=== PATIENT | male | born 1955 | race Caucasian/White ===

== ENCOUNTER 2019-08-04 05:09 | Day surgery (SDC) | payer MEDICARE, SELFPAY ==
[2019-07-27 15:14] VITALS: BMI 36.3
[2019-08-03 11:27] VITALS: BMI 36.5
[2019-08-04] VITALS (10 sets, daily range): BP systolic 143–179; BP diastolic 73–96; PULSE 61–78; RESP 11–19; TEMP 36.7–36.8; O2SAT 98–100
[2019-08-04 07:33] LABS: Basophils Percent Auto 0.5 % (0.2-1.2); Eosinophils Absolute Auto 0.2 K/mm3 (0-0.3); Eosinophils Percent Auto 2.7 % (0-4.4); Hemoglobin 15.3 g/dL (14.0-18.0); Immature Granulocyte Absolute 0.05 K/mm3 (0.00-0.031); Immature Granulocyte Percent A 0.6 % (0-0.5); Lymphocytes Absolute Auto 2.02 K/mm3 (0.9-3.2); Lymphocytes Percent Auto 26.2 % (18.3-44.2); Mean Corpuscular HGB Conc 32.6 g/dl (32-36); Mean Corpuscular Hemoglobin 29.3 pg (26-34); Mean Corpuscular Volume 89.9 fl (80-100); Mean Platelet Volume 8.8 fl (7.4-10.4); Monocytes Absolute Auto 0.5 K/mm3 (0.1-0.6); Monocytes Percent Auto 6.2 % (2.6-8.5); Neutrophils Absolute Auto 4.9 K/mm3 (1.3-6.7); Neutrophils Percent Auto 63.8 % (45.5-73.1); Platelet Count Result 189 k/mm3 (150-375); Red Blood Count 5.23 M/mm3 (4.6-6.20); Red Cell Distribution Width 13.5 % (11.5-14.5); White Blood Count 7.7 K/mm3 (4.5-10.0)
[2019-08-04 07:46] LABS: Blood Urea Nitrogen 28 mg/dL (9-20); Calcium 9.4 mg/dL (8.4-10.2); Carbon Dioxide 25 mmol/L (22-30); Chloride 105 mmol/L (98-107); Estimated CRCL calculation 71 ml/min; Estimated Glomerular Filt Rate > 60; Glucose 120 mg/dL (75-110); Potassium 4.3 mmol/L (3.4-5.0); Sodium 140 mmol/L (137-145)
--- NOTE | 2019-08-04 08:32 | WPDHPUPDATE1 ---
History and Physical Update Update Date/Time: 08/04/19 08:32 History and Physical has been reviewed, including an updated exam of the patient. This is a patient of Dr. Kilgore is has an abnormal EKG and abnormal stress test being evaluated preoperatively for hip surgery. He has history of hypertension. No chest pain or shortness of breath. Is feeling well and wants to have his heart catheterization done today rather than reschedule, since it was originally scheduled with Dr. Mendoza. There are NO changes in the patient's condition. Risks, benefits, and alternatives have been discussed and questions answered. Patient agrees to proceed with procedure. Reviewed possible risks and complications with patient including breathing problems, bleeding problems, blood vessel problems, unanticipated surgery, allergic reactions, kidney problems, CVA, [place], and among others. Discussed possibility of stenting and possible need for DAPT. Discussed the possibility that if DAPT is interrupted stent thrombosis can occur resulting in heart attack and . Stenting would delay his hip surgery. Patient understands risks and desires to proceed.
--- NOTE | 2019-08-04 08:37 | WPDMODSED ---
Moderate Sedation Note-Pt Data Patient Data Allergies Allergy/AdvReac Type Severity Reaction Status Date / Time No Known Allergies Allergy Verified 07/22/19 12:44 Home Medications Medication Instructions Recorded Confirmed Type terazosin 10 mg PO HS 07/17/19 08/03/19 History lisinopril 40 mg PO HS 08/03/19 08/03/19 History Current Medications: Active Medications Sodium Chloride (Normal Saline Iv) 500 mls @ 100 mls/hr IV CONT .Q5H [facility] Sedation/Anesthesia: No previous sedation/anesthesia problems (including family history). [facility] Past Medical History Medical History LVH (left ventricular hypertrophy) Family History Family History (System 07/22/19 @ 09:30 by Ellen Gibbs) Father Diabetes mellitus Hypertension Malignant neoplasm of prostate Mother Patient's mother is Other Family history of cardiovascular disease Social History Social History (Updated 08/04/19 @ 08:38 by Mary Montague MD) Social History: , retired from [employer]. Smoking status: Never smoker Alcohol intake: current Gender identity (if verbalized by the patient): Male Mod Sed Physical Exam Physical Exam Pre Procedural Exam: Normal: Appearance, Eyes, Ears, Nose, Neck, Throat, Airway, Lungs, Heart Size (2/6 AIDA at the apex), Heart Rate, Heart Rhythm, Neuro Exam, Abdomen, Liver, Extremities (Good femoral pulses with no bruits. Intact distal pulses) and Skin Hours since solid foods: 12 Hours since liquid intake: 12 Internal Medicine - PN: Obj Da Vital Signs Vital Signs: Vital Signs - 24 hr 08/04/19 07:33 Temperature 36.8 C Pulse Rate 78 Respiratory Rate 11 L Blood Pressure 177/86 H Pulse Oximetry 98 Meds/Results Medications: Active Medications Generic Name Dose Route Start Last Admin Trade Name Freq PRN Reason Stop Dose Admin Sodium Chloride 500 mls @ 100 mls/hr 08/04/19 06:20 Normal Saline Iv IV CONT .Q5H [facility] Labs CBC & Chem 7: 08/04/19 07:22 08/04/19 07:22 Labs: Laboratory Results - last 24 hr 08/04/19 08/04/19 07:22 07:22 WBC 7.7 RBC 5.23 Hgb 15.3 Hct 47.0 MCV 89.9 MCH 29.3 MCHC 32.6 RDW 13.5 Plt Count 189 MPV 8.8 Immature Gran % (Auto) 0.6 H Neut % (Auto) 63.8 Lymph % (Auto) 26.2 [place] % (Auto) 6.2 Eos % (Auto) 2.7 Baso % (Auto) 0.5 Lymph # (Auto) 2.02 [place] # (Auto) 0.5 Eos # (Auto) 0.2 Baso # (Auto) 0.0 Abs Immat Gran (auto) 0.05 H Absolute Neuts (auto) 4.9 Absolute Nucleated RBC 0.0 Nucleated RBC % 0.0 Sodium 140 Potassium 4.3 Chloride 105 Carbon Dioxide 25 BUN 28 H Creatinine 1.20 Estim Creat Clear Calc 71 Estimated GFR > 60 Glucose 120 H Calcium 9.4 ASA Classification/Sedation ASA Classification/Sedation ASA Class: III Risks: Risks, benefits and alternatives explained and patient/family accepted plan for sedation. Patient re-evaluated immediately prior to sedation.
--- NOTE | 2019-08-04 09:43 | PM.PROC ---
Procedure Note - Detailed Date of procedure: 08/04/19 Pre-op diagnosis: Abnormal Stress Test Abnormal EKG, abnormal stress test, preop evaluation Post-op diagnosis: other ( Mild scattered coronary plaques,no significant coronary disease.) Procedure performed: Procedure: 1. Conscious sedation 2. Left heart catheterization 3. Selective Coronary angiography 4. Left ventriculography . Description of procedure: Site: Right femoral artery Catheters: 5 [place] arterial sheath, 5 [place] 4 cm left Mis catheters, Convey, CLS 4 cm 5 [place] Guide catheter, 5 [place] pigtail catheter Conscious sedation: The patient has no known prior history of adverse affects of conscious sedation. Oropharynx was clear. The patient is deemed a good candidate for conscious sedation. Conscious sedation began at: 0912 Conscious sedation ended at: 0936 Total conscious sedation time: 24 minutes Medications: Versed 1 mg, fentanyl 100 mcg IV push The patient had continuous hemodynamic monitoring, and was also continuously monitored by: Lachelle Pollock RN The patient tolerated conscious sedation well. Detailed procedure: After informed consent the patient brought to the produce laborer and the right femoral area was prepped and draped in the usual fashion. After conscious sedation and local anesthesia the right femoral artery was punctured and cannulated with the arterial sheath. Selective Coronary angiography was performed with the coronary catheters in multiple projections. the right coronary ostium was anterior and the left Mis cannulated that coronary artery fortuitively. I was unable to cannulate the left main As is angled upward and was a little lateral with a 4 cm and 5 cm JL catheter, but the Convey CLS-4 was able to cannulate the left main.These were withdrawn. The pigtail catheter was advanced into the central circulation and left ventricle for pressure measurements and left ventriculography which was performed in the FITZPATRICK projection. This was withdrawn. angiography of the right common femoral arteries performed and the sheath was in suitable position for a vascular closure device. the arterial sheath was removed , Angio-Seal was applied and hemostasis was obtained. during the procedure the systolic blood pressure was 90-212 mmHg and he was given Lopressor 5 mg IV push and hydralazine 10 mg IV push.The patient tolerated the procedure well with no complications. Estimated blood loss was negligible. Anesthesia: local ( With conscious sedation) Surgeon: Mary Montague MD Estimated blood loss (mL): 5 Drains: No Packing: No Pathology: none sent Complications: No immediate complications Condition: stable Disposition: observation Findings: Pressures: LV pressure 220 / 25 mmHg and aortic pressure 220/50 mmHg Right coronary artery: Right coronary artery had an anterior takeoff and was cannulated with the left Mis. Was a non dominant vessel with perhaps 20-30% stenosis of the proximal segment. Left coronary artery: The left main was short with a double-barrel. The Left anterior descending wrapped around the apex. There was some intimal wall thickening and scattered plaques in the mid segment but no flow obstructing lesions. The circumflex was a large vessel with mild scattered plaques but no of obstructing lesions. Left ventriculogram: Hyperdynamic ventricle, EF greater than 75%. Conclusions: Scattered mild coronary plaquing but no significant coronary artery disease Hyperdynamic left ventricle, EF greater than 75% Systolic hypertension Recommendations: Will review with Dr. Kilgore but likely the patient can be cleared for his hip surgery Attention to blood pressure control and risk reduction. Add amlodipine 5 mg daily.
--- NOTE | 2019-08-04 14:32 | SUR.PHASEII ---
1345-pt given D/C orders and instructions. Questions answered and verbalized understanding. Groin soft and non-tender, no evidence of bleeding or hematoma noted. Strong right pedal pulse noted. PIV removed intact. Taken via wheelchair to waiting vehicle. No distress noted or verbalized at time of departure.
== END 2019-08-04 13:45 | disposition home or self-care (01) ==
PROVIDERS: Internal Medicine Cardiovascular Disease; PCP Family Medicine; Visit Provider Internal Medicine Cardiovascular Disease
PROC: 4A023N7 Measurement of Cardiac Sampling and Pressure, Left Heart, Percutaneous Approach (ICD-10-PCS; CPT 93452; principal; 2019-08-04 08:30)
DX: Z01.810 Encounter for preprocedural cardiovascular examination (principal); R94.39 Abnormal result of other cardiovascular function study; I25.10 Atherosclerotic heart disease of native coronary artery without angina pectoris; I10 Essential (primary) hypertension; I45.10 Unspecified right bundle-branch block; I45.2 Bifascicular block; E78.5 Hyperlipidemia, unspecified
CPT/HCPCS: 36415; 80048; 80307; 81001; 82040; 83036; 85025; 85610; 85730; 86850; 86900; 86901; 87081; 93005; 93458; C1760; C1887; C1894; G0269; J0360; J1644; J2250; J3010; J7040

== ENCOUNTER 2019-08-26 00:43 | Day surgery (SDC) | payer MEDICARE, SELFPAY ==
[2019-07-17 10:47] VITALS: BP 134/81; PULSE 79; RESP 18; TEMP 36.7; O2SAT 97; BMI 36.4
--- NOTE | 2019-08-05 13:01 | PC.NURSE ---
PT STATES NO CHANGE IN HEALTH HX SINCE 07/17/19 .HAD HEART CATH 08/04/19
--- NOTE | 2019-08-24 12:21 | PM.IMHP ---
H&P: HPI History of Present Illness Chief complaint: Right Hip DJD Narrative: Chief Complaint: Hip Pain Involved hip: right Onset: gradual Location of pain: lateral and other (groin region ) Pain scale (0-10): 9 Character: stabbing, radiating, aching and throbbing Timing of pain: constant Exacerbated by: sitting, weight bearing, activities of daily living and prolonged activity Relieved by: NSAIDs, heat, rest and cane History of occupational/recreational activity with repetitive movement: No History of prior hip injury: No Review of Systems Review of Systems: All systems reviewed & are unremarkable except as noted in HPI and below Constitutional: Constitutional: Denies headache(s) and Denies weakness Eyes: Eyes: Denies blurry vision, Denies change in vision and Denies loss of vision ENT: Denies dizziness, Denies dry mouth, Denies headache(s) and Denies nasal congestion Cardiovascular: Cardiovascular: Denies chest pain, Denies syncope, Denies leg edema and Denies dyspnea on exertion Respiratory: Respiratory: Denies cough and Denies dyspnea on exertion Gastrointestinal: Gastrointestinal: Denies abdominal pain, Denies constipation and Denies diarrhea Genitourinary: Genitourinary: Denies urinary frequency Musculoskeletal: Musculoskeletal: Reports as per HPI and Denies numbness Integumentary/Breasts: Skin/Breast: Reports system reviewed and no additional complaints, except as docu Neurologic: Denies dizziness, Denies syncope, Denies headache(s), Denies loss of vision, Denies numbness and Denies weakness Psychiatric: Psychiatric: Reports no additional psychiatric complaints Endocrine: Endocrine: Reports no additional endocrine complaints Hematologic/Lymphatic: Hematologic/Lymphatic: Reports no additional hematologic/lymphatic complaints [facility] Past Medical History Medical History LVH (left ventricular hypertrophy) Family History Family History Father Diabetes mellitus Hypertension Malignant neoplasm of prostate Mother Patient's mother is Other Family history of cardiovascular disease Social History Social History Social History: , retired from [employer]. Smoking status: Never smoker Alcohol intake: current Gender identity (if verbalized by the patient): Male Meds Home Medications and Allergies Home Medications Medication Instructions Recorded Confirmed Type terazosin 10 mg PO HS 07/17/19 08/05/19 History lisinopril 40 mg PO HS 08/03/19 08/05/19 History amlodipine 5 mg PO DAILY #30 tablet 08/04/19 08/05/19 Rx Allergies Allergy/AdvReac Type Severity Reaction Status Date / Time No Known Allergies Allergy Verified 08/05/19 12:53 Exam Narrative: Exam Narrative: Const Constitutional General: cooperative Nutritional Appearance: overweight Orientation/consciousness: oriented x3 Constitutional Limitations: no limitations HENMT Head: normal to inspection Ears: hearing grossly normal bilaterally General nose exam: external nose normal Face and sinus: normal facial exam Mouth: moist mucous membranes Teeth and gingiva: dentition normal Eyes General: appearance normal, both eyes and all related structures Pupils: Yes PERRL EOM: EOM intact bilaterally Neck Neck: Yes normal visual inspection Chest Chest palpation & inspection: normal inspection of the chest Resp Effort & Inspection: normal respiratory effort and able to speak in complete sentences Cardio Jugular venous distension: no JVD Neuro Cranial nerves: Yes PERRL Extrem General: No positive Byron's sign Right upper extremity: normal to inspection, full ROM and normal capillary refill Left upper extremity: normal to inspection, full ROM and normal capillary refill Right lower extremity: normal to inspection, hip/thigh (ROM with int
[2019-08-26] VITALS (11 sets, daily range): BP systolic 144–181; BP diastolic 68–86; PULSE 58–79; RESP 14–20; TEMP 36.1–37.1; O2SAT 96–100
--- NOTE | ~2019-08-26 | XR_ITS ---
EXAMINATION: XR hip RT 1V DATE: 08/26/2019 15:47 INDICATION: Right total hip arthroplasty TECHNIQUE: Single AP view right hip FINDINGS: There is a right total hip arthroplasty in expected position. Subcutaneous gas with soft t issue swelling are consistent with recent surgery. IMPRESSION: 1. Recent right total hip arthroplasty. Reviewed, dictated and finalized at location A. [facility]
--- NOTE | 2019-08-26 07:36 | WPDHPUPDATE1 ---
History and Physical Update Update Date/Time: 08/26/19 07:36 History and Physical has been reviewed, including an updated exam of the patient. There are NO changes in the patient's condition. Risks, benefits, and alternatives have been discussed and questions answered. Patient agrees to proceed with procedure.
--- NOTE | 2019-08-26 09:29 | WPDANESEPPF ---
Anes - Initial Pre Proc Eval Procedure: Operation Date: 08/26/19 11:00 Proposed Procedures p Right Total Hip Arthroplasty - Noe Fontana MD Date/Time: 08/26/19 09:29 Surgeon: Noe Fontana MD Pre Op Diagnosis: Right Hip DJD Patient Data Age: 64 Gender: M Height: 5 ft 10 in Weight: 115.3 kg Last Vital Signs Temp 36.7 C 07/17/19 10:47 Pulse 79 07/17/19 10:47 Resp 18 07/17/19 10:47 BP 134/81 07/17/19 10:47 Pulse Ox 97 07/17/19 10:47 Allergies Allergy/AdvReac Type Severity Reaction Status Date / Time No Known Allergies Allergy Verified 08/05/19 12:53 Home Medications Medication Instructions Recorded Confirmed Type terazosin 10 mg PO HS 07/17/19 08/26/19 History lisinopril 40 mg PO HS 08/03/19 08/26/19 History Patient hx anesthesia problems: none Family hx anesthesia problems: none [facility] Past Medical History Medical History LVH (left ventricular hypertrophy) Family History Family History Father Diabetes mellitus Hypertension Malignant neoplasm of prostate Mother Patient's mother is Other Family history of cardiovascular disease Social History Social History Social History: , retired from [employer]. Smoking status: Never smoker Alcohol intake: current Gender identity (if verbalized by the patient): Male Anes - Eval Final PreProcedure Day of Procedure 08/26/19 09:29 Patient weight: obese Heart: regular rate and rhythm Lungs: decreased breath sounds Airway: Mallampati scale class III Neurological: alert and oriented Last oral intake: >/= 8 hours ASA classification: III Emergent: no Anesthetic plan: proceed Anesthesia type and monitoring: general ETT and standard monitoring Informed Consent: The patient's anesthetic plan and its attendant risks and benefits were discussed with the patient/family/POA. Questions were solicited and answers provided to the satisfaction of the patient/family/POA.
[2019-08-26] MEDS: LACTATED RINGERS 1,000 ML 30 ML IV CONT ×2 (09:35→15:29)
[2019-08-26] MEDS: IBUPROFEN IV 800 MG/200 ML 800 MG/200 ML BAG 400 MG IVPB (09:40)
[2019-08-26] MEDS: ceFAZolin 2 GM/D5W 50 ML 2 GM/50 ML BAG IVPB (11:37)
[2019-08-26] MEDS: ceFAZolin SODIUM 1 GM VIAL IV PUSH (11:37)
--- NOTE | 2019-08-26 15:33 | PM.OP ---
Procedure Note - Brief Procedure Note - Brief Date of procedure: 08/26/19 Pre-op diagnosis: Right Hip DJD Post-op diagnosis: same Procedure performed: R LES Anesthesia: GETA Surgeon: Noe Fontana MD Estimated blood loss (mL): 700 Drains: No Complications: No immediate complications Condition: stable Disposition: PACU
[2019-08-26 16:19] LABS: Hematocrit 32.7 % (42.0-52.0); Hemoglobin 10.5 g/dL (14.0-18.0)
[2019-08-26] MEDS: DOCUSATE SODIUM 100 MG CAPSULE PO (18:03)
[2019-08-26] MEDS: TERAZOSIN HCL 5 MG CAPSULE 10 MG PO (22:18)
[2019-08-26] MEDS: lisinopriL 20 MG TABLET 40 MG PO (22:18)
[2019-08-27 02:00] VITALS: BP 122/61; PULSE 79; RESP 18; TEMP 36.9; O2SAT 97
[2019-08-27] MEDS: DIAZEPAM 5 MG TABLET PO (04:16)
[2019-08-27 06:00] VITALS: BP 136/57; PULSE 81; RESP 18; TEMP 37; O2SAT 98
[2019-08-27 06:42] LABS: Basophils Percent Auto 0.3 % (0.2-1.2); Eosinophils Percent Auto 0.4 % (0-4.4); Hematocrit 32.4 % (42.0-52.0); Hemoglobin 10.2 g/dL (14.0-18.0); Immature Granulocyte Absolute 0.05 K/mm3 (0.00-0.031); Immature Granulocyte Percent A 0.5 % (0-0.5); Lymphocytes Absolute Auto 1.18 K/mm3 (0.9-3.2); Lymphocytes Percent Auto 12.7 % (18.3-44.2); Mean Corpuscular HGB Conc 31.5 g/dl (32-36); Mean Corpuscular Hemoglobin 29.3 pg (26-34); Mean Corpuscular Volume 93.1 fl (80-100); Mean Platelet Volume 9.2 fl (7.4-10.4); Monocytes Absolute Auto 0.6 K/mm3 (0.1-0.6); Monocytes Percent Auto 6.6 % (2.6-8.5); Neutrophils Absolute Auto 7.4 K/mm3 (1.3-6.7); Neutrophils Percent Auto 79.5 % (45.5-73.1); Platelet Count Result 201 k/mm3 (150-375); Red Blood Count 3.48 M/mm3 (4.6-6.20); Red Cell Distribution Width 13.9 % (11.5-14.5); White Blood Count 9.3 K/mm3 (4.5-10.0)
[2019-08-27 08:42] LABS: Blood Urea Nitrogen 21 mg/dL (9-20); Calcium 7.9 mg/dL (8.4-10.2); Carbon Dioxide 21 mmol/L (22-30); Chloride 99 mmol/L (98-107); Estimated CRCL calculation 72 ml/min; Estimated Glomerular Filt Rate > 60; Glucose 169 mg/dL (75-110); Potassium 4.2 mmol/L (3.4-5.0); Sodium 136 mmol/L (137-145)
[2019-08-27] MEDS: DOCUSATE SODIUM 100 MG CAPSULE PO ×2 (08:45→16:49)
[2019-08-27] MEDS: ASPIRIN 325 MG ENTERIC TABLET 650 MG PO (08:45)
[2019-08-27] MEDS: CELECOXIB 200 MG CAPSULE PO (08:46)
--- NOTE | 2019-08-27 08:48 | P.PNAN_ITS ---
Anes - Prog Note Post-Op Date/Time: 08/27/19 08:48 Cardiovascular status: normal Respiratory status: normal Airway patency: baseline Mental status: baseline Post-Op hydration status: normal Vital Signs: Last Vital Signs Temp 37.0 C 08/27/19 06:00 Pulse 81 08/27/19 06:00 Resp 18 08/27/19 06:00 BP 136/57 L 08/27/19 06:00 Pulse Ox 98 08/27/19 06:00 I/O: Intake & Output 08/26/19 08/27/19 08/27/19 23:59 07:59 15:59 Intake Total 250 1050 Output Total 400 600 Balance -150 450 Laboratory Tests 08/27/19 06:29 08/27/19 08:15 08/26/19 08/26/19 08/27/19 09:26 16:11 06:29 WBC 9.3 RBC 3.48 L Hgb 10.5 L D 10.2 L Hct 32.7 L 32.4 L MCV 93.1 MCH 29.3 MCHC 31.5 L RDW 13.9 Plt Count 201 MPV 9.2 Immature Gran % (Auto) 0.5 Neut % (Auto) 79.5 H Lymph % (Auto) 12.7 L [place] % (Auto) 6.6 Eos % (Auto) 0.4 Baso % (Auto) 0.3 Lymph # (Auto) 1.18 [place] # (Auto) 0.6 Eos # (Auto) 0.0 Baso # (Auto) 0.0 Abs Immat Gran (auto) 0.05 H Absolute Neuts (auto) 7.4 H Absolute Nucleated RBC 0.0 Nucleated RBC % 0.0 Sodium Potassium Chloride Carbon Dioxide BUN Creatinine Estim Creat Clear Calc Estimated GFR Glucose Calcium Blood Type O Positive Antibody Screen Negative 08/27/19 08:15 WBC RBC Hgb Hct MCV MCH MCHC RDW Plt Count MPV Immature Gran % (Auto) Neut % (Auto) Lymph % (Auto) [place] % (Auto) Eos % (Auto) Baso % (Auto) Lymph # (Auto) [place] # (Auto) Eos # (Auto) Baso # (Auto) Abs Immat Gran (auto) Absolute Neuts (auto) Absolute Nucleated RBC Nucleated RBC % Sodium 136 L Potassium 4.2 Chloride 99 Carbon Dioxide 21 L BUN 21 H Creatinine 1.20 Estim Creat Clear Calc 72 Estimated GFR > 60 Glucose 169 H Calcium 7.9 L Blood Type Antibody Screen Post-procedural complaints: none Patient Feedback: Patient satisfied with anesthetic care.
--- NOTE | 2019-08-27 10:14 | PM.IMCN ---
Assessment and Plan Assessment and plan (1) Prediabetes: Code(s): R73.03 - Prediabetes Status: Acute Assessment and Plan: Diabetic diet Monitor FBS (2) LIVIA on CPAP: Code(s): G47.33 - Obstructive sleep apnea (adult) (pediatric); Z99.89 - Dependence on other enabling machines and devices Status: Acute Assessment and Plan: Home cpap settings (3) Essential (primary) hypertension: Code(s): I10 - Essential (primary) hypertension Status: Acute Assessment and Plan: Continue home regimen (4) Degenerative joint disease (DJD) of hip: Qualifiers: Osteoarthritis type: primary Laterality: right Qualified Code(s): M16.11 - Unilateral primary osteoarthritis, right hip Code(s): M16.9 - Osteoarthritis of hip, unspecified Status: Acute Assessment and Plan: Doing well POD 1 right LES (5) Postoperative anemia: Code(s): D64.9 - Anemia, unspecified Status: Acute Assessment and Plan: F/u lab HPI Data of Consult Consult date: 08/27/19 Requesting Physician: Noe Fontana MD Primary Care Provider: Scottie Garcia MD Consult Narrative Narrative: Portillo Aleman is a 64 year old male has been relatively healthy except for hypertension and osteoarthritis. He underwent uneventful total knee arthroplasties in 2017 in 2018. He had right hip pain at that time. As he tried to increase his activity the hip pain gradually worsened such that he he eventually became fairly immobile. He has been waiting over 7 months for hip surgery. He has developed rest pain moderate to severe and severe pain with any activity. He underwent an uneventful right total hip arthroplasty on August 26. He states that his postoperative pain is less than his pain preoperative. Pain is [id number] this morning. He was able to stand up with physical therapy earlier this morning walk a short distance with a walker. He states that if he tried now he could walk a long distance. Other than hypertension and BPH he has been healthy. He denied any chest pain or shortness of breath or palpitations or dizziness. No GI or complaints. No abnormal bleeding. No weakness or numbness or dizziness. Review of Systems Review of Systems: All systems reviewed & are unremarkable except as noted in HPI and below PMFSH Past Medical History Medical History (Updated 08/27/19 @ 10:21 by Selvin Mercedes MD) Essential (primary) hypertension LVH (left ventricular hypertrophy) Mixed hyperlipidemia LIVIA on CPAP Prediabetes Surgical History Surgical History (Updated 08/27/19 @ 10:18 by Selvin Mercedes MD) History of appendectomy as child Hx of tonsillectomy as child S/P total knee arthroplasty Left 2017, Right 2018 Family History Family History (Updated 08/27/19 @ 10:19 by Selvin Mercedes MD) Father Diabetes mellitus Hypertension Malignant neoplasm of prostate Mother , age 58 Patient's mother is COPD (chronic obstructive pulmonary disease) Other Family history of cardiovascular disease Social History Social History (Updated 08/27/19 @ 10:20 by Selvin Mercedes MD) Social History: , retired from [employer]. Smoking status: Never smoker Alcohol intake: never Substance use: never Living arrangements: with family Additional living arrangements comments: with Occupation/Education: retired Additional occupation/education comments: retired from [employer] Gender identity (if verbalized by the patient): Male Spiritual care concerns: No Agree to blood products: Yes Meds Home Medications and Allergies Home Medications Medication Instructions Recorded Confirmed Type terazosin 10 mg PO HS 07/17/19 08/26/19 History lisinopril 40 mg PO DAILY 08/03/19 08/26/19 History Allergies Allergy/AdvReac Type Severity Reaction Status Date / Time No Known Allergies Aller
[2019-08-27 14:00] VITALS: BP 133/57; PULSE 105; RESP 18; TEMP 36.7; O2SAT 98
--- NOTE | 2019-08-27 16:59 | PM.PNORT ---
Progress Note: A&P Additional Plan POD 1 DOING WELL. GOOD PROGRESS WITH PT. RECOMMEND DC HOME WITH HOME HEALTH. F/U IN 3 WEEKS. EC ASA FOR DVT PROPHYLAXIS 2 TABS Q DAY X 3 WEEKS. Time Spent With Patient Time with patient: 15 - 25 minutes Subjective Subjective Date/Time Seen: 08/27/19 16:59 POD 1 DOING WELL, GOOD PROGRESS WITH PT. NO CALF PAIN Exam Extrem: Other: VSS AFEBRILE DRESSING DRY [place] INTACT NEG HOMANS SIGN Objective Data Vital Signs Vital Signs: Vital Signs - 24 hr 08/26/19 17:25 08/26/19 18:25 08/26/19 22:00 Temperature 36.3 C L 36.7 C Pulse Rate 66 72 75 Respiratory Rate 18 18 18 Blood Pressure 159/77 H 159/84 H 155/69 H Pulse Oximetry 100 99 98 08/27/19 02:00 08/27/19 06:00 08/27/19 14:00 Temperature 36.9 C 37.0 C 36.7 C Pulse Rate 79 81 105 H Respiratory Rate 18 18 18 Blood Pressure 122/61 136/57 L 133/57 L Pulse Oximetry 97 98 98 Intake/Output Intake/Output: Intake & Output 08/24/19 08/25/19 08/26/19 08/27/19 23:59 23:59 23:59 23:59 Intake Total 600 1500 Output Total 400 600 Balance 200 900 Meds/Results Medications: Active Medications Generic Name Dose Route Start Last Admin Trade Name Freq PRN Reason Stop Dose Admin Acetaminophen 650 mg 08/26/19 15:38 Tylenol Tablet PO Q6H PRN Mild Pain (1-3) or Fever Hydrocodone Bitart/Acetaminophen 1 tab 08/26/19 15:38 08/27/19 12:06 [place] 7.5-325 Mg PO 1 tab Q3H PRN Administration Pain Rated 4-6 Aspirin 650 mg 08/27/19 09:00 08/27/19 08:45 Aspirin Ec PO 650 mg DAILY FREDERICK Administration Celecoxib 200 mg 08/27/19 09:00 08/27/19 08:46 Celebrex PO 200 mg DAILY FREDERICK Administration Diazepam 5 mg 08/26/19 15:38 08/27/19 04:16 Valium Po PO 5 mg Q6H PRN Administration Anxiety/Muscle Spasm Docusate Sodium 100 mg 08/26/19 17:00 08/27/19 08:45 Colace Capsule PO 100 mg BID FREDERICK Administration Ibuprofen 800 mg in 200 mls @ 400 mls/hr 08/26/19 15:38 Caldolor 800 Mg/200 Ml IVPB Q6H PRN Pain Rated 4-6 Lisinopril 40 mg 08/26/19 21:00 08/26/19 22:18 Prinivil PO 40 mg HS FREDERICK Administration Magnesium Hydroxide 30 ml 08/26/19 15:38 Milk Of Magnesia PO BID PRN Constipation Morphine Sulfate 3 mg 08/26/19 15:38 Morphine Sulfate Inj IV PUSH Q3H PRN Pain Rated 7-10 Naloxone HCl 0.1 mg 08/26/19 15:38 Narcan IV PUSH Q2M PRN Opiate Reversal Terazosin HCl 10 mg 08/26/19 21:00 08/26/19 22:18 Hytrin PO 09/25/19 21:01 10 mg HS FREDERICK Administration Radiology Results: ITS Impressions Hip X-Ray 08/26/19 16:00 IMPRESSION: 1. Recent right total hip arthroplasty. Labs Labs: Laboratory Results - last 24 hr 08/27/19 08/27/19 06:29 08:15 WBC 9.3 RBC 3.48 L Hgb 10.2 L Hct 32.4 L MCV 93.1 MCH 29.3 MCHC 31.5 L RDW 13.9 Plt Count 201 MPV 9.2 Immature Gran % (Auto) 0.5 Neut % (Auto) 79.5 H Lymph % (Auto) 12.7 L [place] % (Auto) 6.6 Eos % (Auto) 0.4 Baso % (Auto) 0.3 Lymph # (Auto) 1.18 [place] # (Auto) 0.6 Eos # (Auto) 0.0 Baso # (Auto) 0.0 Abs Immat Gran (auto) 0.05 H Absolute Neuts (auto) 7.4 H Absolute Nucleated RBC 0.0 Nucleated RBC % 0.0 Sodium 136 L Potassium 4.2 Chloride 99 Carbon Dioxide 21 L BUN 21 H Creatinine 1.20 Estim Creat Clear Calc 72 Estimated GFR > 60 Glucose 169 H Calcium 7.9 L
--- NOTE | 2019-08-27 17:11 | P.DS_ITS ---
DS: Diagnosis Admitting Diagnosis Admitting Diagnosis: Osteoarthritis of hip, unspecified DS: Summary Time Spent with Patient Time attestation: Total time spent providing and/or coordinating discharge services: 15 min DS: Data Data Completed and Pending Labs on day of discharge: Labs from last 24 hours 08/27/19 08/27/19 08:15 06:29 WBC 9.3 RBC 3.48 L Hgb 10.2 L Hct 32.4 L MCV 93.1 MCH 29.3 MCHC 31.5 L RDW 13.9 Plt Count 201 MPV 9.2 Immature Gran % (Auto) 0.5 Neut % (Auto) 79.5 H Lymph % (Auto) 12.7 L [place] % (Auto) 6.6 Eos % (Auto) 0.4 Baso % (Auto) 0.3 Lymph # (Auto) 1.18 [place] # (Auto) 0.6 Eos # (Auto) 0.0 Baso # (Auto) 0.0 Abs Immat Gran (auto) 0.05 H Absolute Neuts (auto) 7.4 H Absolute Nucleated RBC 0.0 Nucleated RBC % 0.0 Sodium 136 L Potassium 4.2 Chloride 99 Carbon Dioxide 21 L BUN 21 H Creatinine 1.20 Estim Creat Clear Calc 72 Estimated GFR > 60 Glucose 169 H Calcium 7.9 L Discharge Plan Discharge Patient Disposition: Home, Self-Care Discharge Instructions: Care Coordination. Patient to have [facility] following Right Hip DJD for RN/PT/OT [phone]. They will call patient to schedule first apointment. Follow-up/Referrals: Noe Fontana MD [Physician] - 3 Weeks Discharge Medications: New hydrocodone-acetaminophen [Bokeelia] 5-325 mg tablet 1 tablet PO Q6H PRN (Reason: pain) Qty: 60 RF: 0 aspirin 325 mg Tablet,Delayed Release (Dr/Ec) 650 mg PO DAILY Qty: 0 RF: 0 Continued terazosin 10 mg capsule 10 mg PO HS RF: 0 lisinopril 40 mg tablet 40 mg PO DAILY RF: 0 Quality VTE Prophylaxis VTE prophylaxis: pharmacologic ordered
--- NOTE | 2019-08-27 22:13 | OP_ITS ---
DATE OF PROCEDURE: 08/26/2019 PREOPERATIVE DIAGNOSIS: Right hip end-stage degenerative joint disease. POSTOPERATIVE DIAGNOSIS: Right hip end-stage degenerative joint disease. PROCEDURE: Right total hip arthroplasty. ANESTHESIA: General. COMPLICATIONS: None. INDICATIONS: This is a 64-year-old gentleman, who has end-stage right hip DJD. He was indicated for right total hip arthroplasty. DESCRIPTION OF PROCEDURE: The patient was taken to the operating room in stable condition and placed in supine position. General anesthesia was induced and then he was placed in the lateral decubitus and the right lower extremities were prepped and draped sterilely from the toes to the iliac crest. Incision was made over the greater trochanter and down in alignment with the shaft of the femur down to the subcutaneous tissues until the fascia was identified. The bleeders were cauterized within the subcutaneous fat and then the fascia was incised until the short external rotators of the hip were identified. The fascia was retracted. The piriformis tendon was identified. The tendon was incised down to the capsule of the hip joint and a clear fluid were coming from the capsule. The incision continued through the short external rotators until the lesser trochanter was identified. Next, the hip was dislocated and then an osteotomy approximately 1 cm proximal to the lesser trochanter was performed. The femoral head was performed as was the acetabular. The acetabulum was then exposed and then reaming was performed starting with a 45 reamer until a 53 reamer was used to prepare the acetabulum approximately 40 degrees of abduction and version was in alignment with the transacetabular ligament. A trial acetabular component was placed and it bottomed out well and so then a 54 Biomet acetabular component was press-fit into the acetabulum. The fit was excellent. There were 2 screws that were placed for extra support due to the patient's weight and then a liner was placed and it fit well. The acetabular component was placed in approximately 40 degrees of abduction and the version was within alignment of the transacetabular ligament. Next, then the femur was prepared first with a canal finder and then with sequential broaching in approximately 15 degrees of anteversion. The broach that was used was a 12 broach. This stayed in as a trial. A +3 high offset trial neck was placed on a 36 mm head. The hip was reduced, taken through range of motion. The leg lengths were grossly equal. The hip was very stable in rotation. Trial components were removed and then a Biomet Taperloc #12 high offset stem was placed in 15 degrees of anteversion and then a +3, 36 mm ceramic head was placed on the prosthesis and tapped and it was secured. The hip was reduced once again, taken through range of motion, found to be very stable. Leg lengths were grossly equal. The Shuck test was excellent. The wound then was irrigated thoroughly with sterile Betadine and sterile water for 3 minutes and then the short external rotators and the capsule were approximated with #1 Vicryl. The fascial layer was approximated with #2 Quill. The subcutaneous tissues were approximated with #2-0 Vicryl and then tru were used to approximate the skin. Sterile dressing was applied. The patient was placed back in the supine position. He was extubated and sent to Recovery. Chaitanya Antwon MT: Caitlin
== END 2019-08-27 18:40 | disposition home or self-care (01) ==
LOC: ANHSURGERY 08:46 → ANH3MEDSUR 17:18
PROVIDERS: PCP Family Medicine; Visit Provider Orthopaedic Surgery
PROC: (CPT 27130; principal; 2019-08-26 11:00)
DX: M16.11 Unilateral primary osteoarthritis, right hip (principal); I51.7 Cardiomegaly; E66.9 Obesity, unspecified; Z68.37 Body mass index [BMI] 37.0-37.9, adult
CPT/HCPCS: 27130; 36415; 73501; 80048; 85014; 85018; 85025; 86850; 86900; 86901; 97110; 97116; 97161; 97165; 97535; A9270; C1776; J0131; J0171; J0330; J0690; J1100; J1741; J2250; J2270; J2405; J2704; J2710; J2795; J3010; J7120

== ENCOUNTER 2020-11-03 07:50 | Outpatient (CLI) | payer MEDICARE, SELFPAY ==
--- NOTE | 2020-11-03 08:47 | ECG_ITS ---
Measurements Intervals [place] Rate: 58 P: 50 CA: 167 QRS: -44 QRSD: 159 T: 115 QT: 428 QTc: 423 Interpretive Statements SINUS BRADYCARDIA LEFT AXIS DEVIATION RIGHT BUNDLE BRANCH BLOCK LEFT VENTRICULAR HYPERTROPHY AND ST-T CHANGE ABNORMAL ECG Electronically Signed On 11-03-2020 9:08:40 CDT by Kenrick Santos D.O.
[2020-11-03 09:16] LABS: Basophils Percent Auto 0.5 % (0.2-1.2); Eosinophils Absolute Auto 0.2 K/mm3 (0-0.3); Eosinophils Percent Auto 3.2 % (0-4.4); Hematocrit 47.5 % (42.0-52.0); Hemoglobin 15.3 g/dL (14.0-18.0); Immature Granulocyte Absolute 0.05 K/mm3 (0.00-0.031); Immature Granulocyte Percent A 0.8 % (0-0.5); Lymphocytes Absolute Auto 1.68 K/mm3 (0.9-3.2); Lymphocytes Percent Auto 25.4 % (18.3-44.2); Mean Corpuscular HGB Conc 32.2 g/dl (32-36); Mean Corpuscular Hemoglobin 29.3 pg (26-34); Mean Platelet Volume 8.8 fl (7.4-10.4); Monocytes Absolute Auto 0.4 K/mm3 (0.1-0.6); Neutrophils Absolute Auto 4.3 K/mm3 (1.3-6.7); Neutrophils Percent Auto 64.1 % (45.5-73.1); Platelet Count Result 184 k/mm3 (150-375); Red Blood Count 5.22 M/mm3 (4.6-6.20); Red Cell Distribution Width 14.6 % (11.5-14.5); White Blood Count 6.6 K/mm3 (4.5-10.0)
[2020-11-03 09:25] LABS: Add Urine Microscopic? YES; Appearance Urine Clear (Clear); Bilirubin Urine Negative (Negative); Blood Urine Negative (Negative); Color Urine Yellow (Yellow); Glucose Urine UA Negative (Negative); Ketones Urine Negative (Negative); Leukocyte Esterase Ur Negative LEU/UL (Negative); Mucus Urine Rare /lpf; Nitrate Urine Negative (Negative); Protein Urine 3+ mg/dL (Negative); RBC Urine 0-2 /hpf (0-2); Specific Grav Ur 1.026 (1.001-1.035); Squamous Epithelial Cell Urine Occasional /hpf (Few); Urobilinogen Urine Negative mg/dL (<2.0); WBC Urine 0-3 /hpf
[2020-11-03 09:28] LABS: Albumin Level 4.4 g/dL (3.5-5.1); Anion Gap 5 mmol/L (8-16); Blood Urea Nitrogen 20 mg/dL (9-20); Calcium 9.1 mg/dL (8.4-10.2); Carbon Dioxide 30 mmol/L (22-30); Chloride 107 mmol/L (98-107); Estimated Glomerular Filt Rate > 60; Glucose 110 mg/dL (75-110); Potassium 4.6 mmol/L (3.4-5.0); Sodium 142 mmol/L (137-145)
[2020-11-03 09:32] LABS: Urine Cotinine NEGATIVE
[2020-11-03 09:37] LABS: INR 0.9; Prothrombin Time 12.6 Seconds (11.1-14.7)
[2020-11-03 09:39] LABS: Partial Thromboplastin Time 27.5 SECONDS (22.3-36.8)
[2020-11-03 11:37] LABS: Hemoglobin A1C 5.2 % (<5.7)
== END 2020-11-03 07:51 | disposition home or self-care (01) ==
LOC: ANHSURGERY 07:53
PROVIDERS: PCP Family Medicine; Visit Provider Orthopaedic Surgery
DX: M16.12 Unilateral primary osteoarthritis, left hip (principal); Z01.818 Encounter for other preprocedural examination; I45.10 Unspecified right bundle-branch block
CPT/HCPCS: 80048; 80307; 81001; 82040; 83036; 85025; 85610; 85730; 86850; 86900; 86901; 87081; 93005

== ENCOUNTER → 2020-11-05 01:27 | Outpatient (CLI) | payer MEDICARE, SELFPAY ==
[2020-11-05 19:17] LABS: SARS-CoV-2 RNA PCR Positive
== END ==
PROVIDERS: PCP Family Medicine; Visit Provider Orthopaedic Surgery
DX: Z01.812 Encounter for preprocedural laboratory examination (principal); U07.1 COVID-19
CPT/HCPCS: C9803; U0003; U0005

== ENCOUNTER 2020-11-23 02:38 | Day surgery (SDC) | payer MEDICARE, SELFPAY ==
[2020-11-03 08:00] VITALS: BMI 38.2
[2020-11-03 08:49] VITALS: BP 164/77; PULSE 59; RESP 16; TEMP 37; O2SAT 98
[2020-11-10 13:03] VITALS: BMI 38.4
[2020-11-23] VITALS (11 sets, daily range): BP systolic 140–172; BP diastolic 64–87; PULSE 63–83; RESP 13–21; TEMP 35.8–36.8; O2SAT 95–100
--- NOTE | ~2020-11-23 | XR_ITS ---
EXAMINATION: XR hip LT 1V DATE: 11/23/2020 13:44 INDICATION: Left hip arthroplasty. Postop. TECHNIQUE: A single view of left hip was obtained. COMPARISON: Left hip radiograph 01/22/2017 FINDINGS: There is a total left hip arthroplasty in near-anatomic alignment. No fracture. There is ga s in the soft tissues, consistent with recent surgery. IMPRESSION: 1. Total left hip arthroplasty in near-anatomic alignment. Reviewed, dictated and finalized at location A.
--- NOTE | 2020-11-23 07:22 | WPDHPUPDATE1 ---
History and Physical Update Update Date/Time: 11/23/20 07:22 History and Physical has been reviewed, including an updated exam of the patient. There are NO changes in the patient's condition. Risks, benefits, and alternatives have been discussed and questions answered. Patient agrees to proceed with procedure.
[2020-11-23] MEDS: LACTATED RINGERS 1,000 ML 30 ML IV CONT ×2 (10:00→13:34)
[2020-11-23] MEDS: ACETAMINOPHEN 500 MG TABLET 1000 MG PO (10:00)
[2020-11-23] MEDS: TRANEXAMIC ACID 1,000MG/ISO100 1,000 MG/100 ML BAG 200 MG IVPB (10:02)
--- NOTE | 2020-11-23 10:14 | WPDANESEPPF ---
Anes - Initial Pre Proc Eval Procedure: Operation Date: 11/23/20 11:00 Proposed Procedures p Left Total Hip Arthroplasty - Noe Fontana MD Date/Time: 11/23/20 10:14 Surgeon: Noe Fontana MD Pre Op Diagnosis: Left Hip DJD Patient Data Age: 65 Gender: M Height: 5 ft 9 in Weight: 120.8 kg Last Vital Signs Temp 98.6 F 11/03/20 08:49 Pulse 59 L 11/03/20 08:49 Resp 16 11/03/20 08:49 BP 164/77 H 11/03/20 08:49 Pulse Ox 98 11/03/20 08:49 Allergies Allergy/AdvReac Type Severity Reaction Status Date / Time No Known Allergies Allergy Verified 11/23/20 09:17 Home Medications Medication Instructions Recorded Confirmed Type hydrocodone 5 mg-acetaminophen 325 1 tablet PO Q6H PRN #30 tablet 08/04/20 11/23/20 Rx mg tablet chlorhexidine gluconate 4 % 1 applic TOPICAL ONCE #237 ml 09/13/20 11/23/20 Rx topical liquid acetaminophen [Acetaminophen Extra 500 mg PO Q6H PRN 11/03/20 11/23/20 History Strength] cholecalciferol (vitamin D3) 25 mcg PO DAILY 11/03/20 11/23/20 History lisinopril 40 mg PO QNOON 11/03/20 11/23/20 History [id number] 1 tablet PO DAILY 11/03/20 11/23/20 History [Tristin Multivitamin For Men] terazosin 10 mg PO HS 11/03/20 11/23/20 History Patient hx anesthesia problems: none Family hx anesthesia problems: none PMFSH Past Medical History Medical History Arthritis Essential (primary) hypertension Hypertension LVH (left ventricular hypertrophy) Mixed hyperlipidemia LIVIA on CPAP Osteoporosis Prediabetes Weight gain Surgical History Surgical History History of appendectomy as child Hx of tonsillectomy as child S/P total hip arthroplasty S/P total knee arthroplasty Left 2016, Right 2017 Family History Family History Father Diabetes mellitus Hypertension Malignant neoplasm of prostate Mother , age 58 Patient's mother is COPD (chronic obstructive pulmonary disease) Other Family history of cardiovascular disease Social History Social History Social History: , retired from [employer]. Smoking status: Never smoker Second hand tobacco smoke exposure: No Additional smoking assessment comments: DENIES ANY FORM OF TOBACCO USE Alcohol intake: current Drinks per week: 1 Substance use: never Substance use type: does not use Living arrangements: with family Additional occupation/education comments: retired from [employer] Gender identity (if verbalized by the patient): Male Spiritual care concerns: No Agree to blood products: Yes Anes - Eval Final PreProcedure Day of Procedure 11/23/20 10:14 Patient weight: obese Heart: regular rate and rhythm Lungs: clear to auscultation Airway: Mallampati scale class III Neurological: alert and oriented Last oral intake: >/= 8 hours ASA classification: III Emergent: no Anesthetic plan: proceed Anesthesia type and monitoring: general ETT and standard monitoring Informed Consent: The patient's anesthetic plan and its attendant risks and benefits were discussed with the patient/family/POA. Questions were solicited and answers provided to the satisfaction of the patient/family/POA.
--- NOTE | 2020-11-23 10:20 | WPDANESEPPF ---
Anes - Initial Pre Proc Eval Procedure: Operation Date: 11/23/20 11:00 Proposed Procedures p Left Total Hip Arthroplasty - Noe Fontana MD Date/Time: 11/23/20 10:20 Surgeon: Noe Fontana MD Pre Op Diagnosis: Left Hip DJD Patient Data Age: 65 Gender: M Height: 5 ft 9 in Weight: 120.8 kg Last Vital Signs Temp 98.6 F 11/03/20 08:49 Pulse 59 L 11/03/20 08:49 Resp 16 11/03/20 08:49 BP 164/77 H 11/03/20 08:49 Pulse Ox 98 11/03/20 08:49 Allergies Allergy/AdvReac Type Severity Reaction Status Date / Time No Known Allergies Allergy Verified 11/23/20 09:17 Home Medications Medication Instructions Recorded Confirmed Type hydrocodone 5 mg-acetaminophen 325 1 tablet PO Q6H PRN #30 tablet 08/04/20 11/23/20 Rx mg tablet chlorhexidine gluconate 4 % 1 applic TOPICAL ONCE #237 ml 09/13/20 11/23/20 Rx topical liquid acetaminophen [Acetaminophen Extra 500 mg PO Q6H PRN 11/03/20 11/23/20 History Strength] cholecalciferol (vitamin D3) 25 mcg PO DAILY 11/03/20 11/23/20 History lisinopril 40 mg PO QNOON 11/03/20 11/23/20 History [id number] 1 tablet PO DAILY 11/03/20 11/23/20 History [Tristin Multivitamin For Men] terazosin 10 mg PO HS 11/03/20 11/23/20 History Patient hx anesthesia problems: none Family hx anesthesia problems: none PMFSH Past Medical History Medical History Arthritis Essential (primary) hypertension Hypertension LVH (left ventricular hypertrophy) Mixed hyperlipidemia LIVIA on CPAP Osteoporosis Prediabetes Weight gain Surgical History Surgical History History of appendectomy as child Hx of tonsillectomy as child S/P total hip arthroplasty S/P total knee arthroplasty Left 2016, Right 2017 Family History Family History Father Diabetes mellitus Hypertension Malignant neoplasm of prostate Mother , age 58 Patient's mother is COPD (chronic obstructive pulmonary disease) Other Family history of cardiovascular disease Social History Social History Social History: , retired from [employer]. Smoking status: Never smoker Second hand tobacco smoke exposure: No Additional smoking assessment comments: DENIES ANY FORM OF TOBACCO USE Alcohol intake: current Drinks per week: 1 Substance use: never Substance use type: does not use Living arrangements: with family Additional occupation/education comments: retired from [employer] Gender identity (if verbalized by the patient): Male Spiritual care concerns: No Agree to blood products: Yes Anes - Eval Final PreProcedure Day of Procedure 11/23/20 10:20 Patient weight: morbidly obese Heart: regular rate and rhythm Lungs: clear to auscultation Airway: Mallampati scale class III Neurological: alert and oriented Last oral intake: >/= 8 hours ASA classification: IV Emergent: no Anesthetic plan: proceed Anesthesia type and monitoring: general ETT and standard monitoring Informed Consent: The patient's anesthetic plan and its attendant risks and benefits were discussed with the patient/family/POA. Questions were solicited and answers provided to the satisfaction of the patient/family/POA.
[2020-11-23] MEDS: ceFAZolin 3 GM/D5W 100 ML 100 ML IVPB (10:35)
[2020-11-23] MEDS: TRANEXAMIC ACID 1,000 MG/10 ML AMPUL 1000 MG IV PUSH (12:38)
--- NOTE | 2020-11-23 13:34 | PM.PROC ---
Procedure Note - Detailed Date of procedure: 11/23/20 Pre-op diagnosis: Left Hip DJD LEFT HIP DJD Post-op diagnosis: same Procedure performed: LEFT LES Description of procedure: THE PATIENT WAS TAKEN TO THE OPERATING ROOM IN STABLE CONDITION. SHE WAS PLACED IN THE LATERAL DECUBITUS AND THE LEFT LOWER EXTREMITY WAS PREPPED AND DRAPED IN THE STERILE FASHION. INCISION WAS MADE IN THE POSTERIOR LATERAL SIDE OF THE HIP, DOWN TO THE FASCIA LAYER. THE FASCIA WAS INCISED. THE HIP WAS EXPOSED. THE SHORT EXTERNAL ROTATORS WERE EXPOSED AND THE SCIATIC NERVE WAS VISUALIZED. THE CAPSULE WAS INCISED EXPOSING THE HIP JOINT. THE HIP WAS DISLOCATED. AN OSTEOTOMY WAS MADE TO THE FEMORAL NECK ABOUT 1 CM PROXIMAL TO THE LESSER TROCHANTER. THE ACETABULUM WAS EXPOSED. THERE WAS SEVERE DJD SEEN. THE ACETABULUM WAS REAMED TO 51 MM. A 51 MM TRIAL WAS PLACED IN 35 DEG OF ABDUCTION AND ANTEVERSION WAS IN ALIGNMENT WITH THE TRANS ACETABULAR LIGAMENT. THE FIT WAS EXCELLENT. THE TRIAL WAS REMOVED. A 52 MM BIOMET G7 COMPONENT WAS THEN TAPPED IN TO PLACE IN 35 DEG OF ABDUCTION AND ANTEVERSION IN ALIGNMENT WITH THE TRANSVERSE ACETABULAR LIGAMENT. THE ACETABULAR LINER WAS PLACED AND CHECKED FOR STABILITY. NEXT THE FEMUR WAS PREPARED WITH INITIAL CANAL FINDER THEN SEQUENTIAL BROACHING TILL AN 12 BROACH FIT WELL IN 15 OF ANTE VERSION. A 0, HIGH OFFSET NECK WITH 36 MM HEAD TRIAL WAS PLACED. THE LEO TEST WAS EXCELLENT AND THE STABILITY IN FLEXION AND ROTATION WAS EXCELLENT. LEG LENGTHS WERE GROSSLY EQUAL. TRIALS WERE REMOVED. A BIOMET TAPERLOC 12 STEM WAS PLACED WITH A HIGH OFFSET NECK. THE FIT WAS EXCELLENT IN 15 DEG OF ANTEVERSION. A 0 CERAMIC 36 MM FEMORAL HEAD WAS PLACED. THE HIP WAS TRIALED AND THE STABILITY WAS EXCELLENT WERE THE LEG LENGTHS AND THE SCHUK TEST. THE WOUND WAS IRRIGATED WITH STERILE BETADINE AND WATER FOR 3 MIN. THEN WASHED AGAIN. THE CAPSULE AND THE EXTERNAL ROTATORS WERE APPROXIMATED WITH NUMBER 1 VICRYL. THE FASCIA WITH No 2 QUIL AND THE SUB CUTANEOUS LAYER WITH 2-0 ABSORBABLE SUTURE WITH A RUNNING 3-0 SUBCUTICULAR LAYER WELL. DERMABOND WAS PLACED AND STERILE DRESSING WAS APPLIED. PATIENT WAS PLACED BACK ON TO THE SUPINE POSITION AND WAS EXTUBATED. Anesthesia: GETA Surgeon: Noe Fontana MD Estimated blood loss (mL): 150 Drains: No Complications: No immediate complications Condition: stable Disposition: PACU
--- NOTE | 2020-11-23 13:50 | SUR.PHASEI ---
1341 xrays of left hip done.
[2020-11-23 14:05] LABS: Hematocrit 43.1 % (42.0-52.0)
[2020-11-23] MEDS: fentaNYL CITRATE INJ (*CRX) 100 MCG/2 ML VIAL 25 MCG IV PUSH ×4 (14:06→14:17)
--- NOTE | 2020-11-23 14:10 | SUR.PHASEI ---
1400 [facility] h&h and sent to lab.
[2020-11-23] MEDS: HYDROmorphone HCL INJ (*CRX) 1 MG/ML SYR 0.5 MG IV PUSH (14:39)
--- NOTE | 2020-11-23 15:00 | ADMGEN ---
This patient, Portillo Aleman, was admitted to Medical Room 259-01. Patient/family oriented to hospital policies and general routines including ID bracelet, bed and alarms, visiting hours, pain management, procedures, bathroom and other care routines, personal items, smoking policy, room service/diet, and visiting hours. Information on how to activate the Rapid Response Team has been discussed. Patient/Family are encouraged to report perceived risks to care and to ask questions if they do not understand what they are told or what they should do.
[2020-11-23] MEDS: ACETAMINOPHEN 325 MG TABLET 650 MG PO (15:22)
[2020-11-23] MEDS: HYDROcodone/acetaminophen (*CRX) 7.5-325 MG TABLET 1 TAB PO (16:25)
[2020-11-23] MEDS: ONDANSETRON INJ 4 MG/2 ML VIAL IV PUSH (16:25)
[2020-11-23] MEDS: lisinopriL 20 MG TABLET 40 MG PO (16:26)
[2020-11-23] MEDS: MORPHINE SULFATE (*CRX) 4 MG/ML INJ 3 MG IV PUSH ×2 (17:48→20:57)
[2020-11-23] MEDS: ceFAZolin 2 GM/D5W 50 ML 2 GM/50 ML BAG IVPB (17:49)
--- NOTE | 2020-11-23 17:50 | PC.NURSE ---
pt has been reluctant to take pain medications, started with tylenol per his request, and have tried hydrocodone, pain is not relieved so did administer morphine
[2020-11-23] MEDS: TERAZOSIN HCL 5 MG CAPSULE 10 MG PO (20:57)
[2020-11-23] MEDS: FAMOTIDINE 20 MG TABLET PO (20:58)
--- NOTE | 2020-11-23 21:00 | WPDCN ---
Assessment and Plan Assessment and plan (1) Degenerative joint disease of left hip: Code(s): M16.12 - Unilateral primary osteoarthritis, left hip Status: Acute (2) Hypertension: Code(s): I10 - Essential (primary) hypertension Status: Inactive (3) Benign prostatic hyperplasia: Code(s): N40.0 - Benign prostatic hyperplasia without lower urinary tract symptoms Status: Acute (4) Obstructive sleep apnea on CPAP: Code(s): G47.33 - Obstructive sleep apnea (adult) (pediatric); Z99.89 - Dependence on other enabling machines and devices Status: Acute (5) Mixed hyperlipidemia: Code(s): E78.2 - Mixed hyperlipidemia Status: Acute (6) Prediabetes: Code(s): R73.03 - Prediabetes Status: Chronic Additional Plan The hospitalist service has been consulted for medical management. The patient is postoperative day 0, elective left hip replacement. Wound care, pain control, and DVT prophylaxis will be deferred to Dr. Fontana. Agree with early ambulation and physical therapy. Check baseline labs in a.m. Recent hemoglobin A1c has improved to 5.2%, no need for sliding scale insulin or Accu-Cheks. He has not been using a CPAP at home since he lost 50 pounds. His vital signs were reviewed. Blood pressures have been a bit elevated, likely due to pain. Continue antihypertensives and monitor daily. Monitor closely for postoperative urinary retention. Thank you for allowing us to participate in this patient's care. Please do not hesitate to contact us with any questions. Supervising physician for this medical consultation is Dr. Zohreh Shields. HPI Data of Consult Date/Time: 11/23/20 21:00 Requesting Physician: Noe Fontana MD Primary Care Provider: Scottie Garcia MD Consult Narrative Narrative: This is a 65-year-old male status post elective left total hip arthroplasty whom the hospitalist service has been consulted for management of his medical conditions. Aside from degenerative joint disease his medical history is significant for hypertension, hyperlipidemia, benign prostatic hyperplasia, gout, pre diabetes, and obstructive sleep apnea. He has had longstanding pain in the left hip not amenable to conservative outpatient treatment and thus he elected for replacement today. His surgery was performed under general anesthesia with no immediate complications documented an estimated blood loss 150 mL. At the time my evaluation he is resting comfortably and his pain is better controlled as he has just received morphine. He has not yet been out of bed. He does have some mild nausea with the morphine but has not had any emesis. Other than that he has no complaints. He is specifically denies paresthesias, skin color, and temperature changes distal to the surgical site. He also denies fever, chills, chest pain, and shortness of breath. Review of Systems Review of Systems: Narrative: Twelve systems were reviewed with pertinent positives and negatives as per HPI. He has lost about 50 pounds since he was diagnosed with pre diabetes and has been feeling pretty darn good. He has been sleeping well and has not needed to use his CPAP since the weight loss either. No cold or flu symptoms. He denies exposure to those positive for COVID-19. No history of venous thromboembolism. Except as documented, all other systems were reviewed and are negative. [facility] Past Medical History Medical History (Updated 11/23/20 @ 22:27 by Maria De Jesus Gonzalez PA-C) Arthritis Benign prostatic hyperplasia Hypertension Mixed hyperlipidemia Obstructive sleep apnea on CPAP Osteoporosis Prediabetes Hemoglobin A1c was 5.9% in April 2020. Hemoglobin A1c was 5.2% in October 2020. Squamous cell carcinoma of skin of other parts of face Surgical History Surgical History (Updated 11/23/20 @ 22:48 by Maria De Jesus Gonzalez PA-C)
[2020-11-24 00:38] VITALS: BP 142/59; PULSE 78; RESP 20; TEMP 36.6; O2SAT 98
[2020-11-24] MEDS: HYDROcodone/acetaminophen (*CRX) 7.5-325 MG TABLET 1 TAB PO ×4 (04:35→16:46)
[2020-11-24] MEDS: ceFAZolin 2 GM/D5W 50 ML 2 GM/50 ML BAG IVPB ×2 (04:35→09:38)
[2020-11-24 04:38] VITALS: BP 130/69; PULSE 67; RESP 20; TEMP 36.4; O2SAT 98
[2020-11-24 05:43] LABS: Basophils Percent Auto 0.1 % (0.2-1.2); Eosinophils Percent Auto 0.1 % (0-4.4); Hematocrit 38.1 % (42.0-52.0); Hemoglobin 12.6 g/dL (14.0-18.0); Immature Granulocyte Absolute 0.07 K/mm3 (0.00-0.031); Immature Granulocyte Percent A 0.7 % (0-0.5); Lymphocytes Absolute Auto 1.06 K/mm3 (0.9-3.2); Lymphocytes Percent Auto 10.1 % (18.3-44.2); Mean Corpuscular HGB Conc 33.1 g/dl (32-36); Mean Corpuscular Hemoglobin 29.5 pg (26-34); Mean Corpuscular Volume 89.2 fl (80-100); Mean Platelet Volume 9.4 fl (7.4-10.4); Monocytes Absolute Auto 0.9 K/mm3 (0.1-0.6); Monocytes Percent Auto 8.8 % (2.6-8.5); Neutrophils Absolute Auto 8.4 K/mm3 (1.3-6.7); Neutrophils Percent Auto 80.2 % (45.5-73.1); Platelet Count Result 182 k/mm3 (150-375); Red Blood Count 4.27 M/mm3 (4.6-6.20); Red Cell Distribution Width 14.6 % (11.5-14.5); White Blood Count 10.5 K/mm3 (4.5-10.0)
[2020-11-24 05:55] LABS: Alanine Aminotransferase 18 U/L (4-50); Albumin Level 3.6 g/dL (3.5-5.1); Alkaline Phosphatase 77 U/L (38-126); Anion Gap 7 mmol/L (8-16); Aspartate Amino Transferase 33 U/L (17-59); Bilirubin,Total 0.3 mg/dL (0.2-1.3); Blood Urea Nitrogen 21 mg/dL (9-20); Calcium 8.9 mg/dL (8.4-10.2); Carbon Dioxide 26 mmol/L (22-30); Chloride 103 mmol/L (98-107); Estimated CRCL calculation 92 ml/min; Estimated Glomerular Filt Rate > 60; Glucose 138 mg/dL (75-110); Magnesium 1.7 mg/dL (1.6-2.3); Potassium 4.6 mmol/L (3.4-5.0); Sodium 136 mmol/L (137-145)
--- NOTE | 2020-11-24 09:05 | PM.PNORT ---
Progress Note: A&P Assessment and Plan (1) S/P total hip arthroplasty: Qualifiers: Laterality: right Qualified Code(s): Z96.641 - Presence of right artificial hip joint Code(s): Z96.649 - Presence of unspecified artificial hip joint Status: Acute Assessment and Plan: POD #1: Left LES Continue PT/OT. WBAT. Walker. HIGH FALL RISK. Continue pain control. Ice lateral hip. Continue DVT prophylaxis. SCDs. Incentive Spirometry. Monitor dressing. Change prior to discharge. Dispo: Home with Home Health pending progress with PT/OT. (2) Degenerative joint disease of left hip: Qualifiers: Osteoarthritis type: primary Qualified Code(s): M16.12 - Unilateral primary osteoarthritis, left hip Code(s): M16.12 - Unilateral primary osteoarthritis, left hip Status: Acute Subjective Subjective Date/Time Seen: 11/24/ 09:05 POD #1: Left LES Mild lightheadedness with OT this AM. Otherwise feeling well. Pain controlled. Review of Systems Constitutional: Constitutional: Denies chills, Denies fatigue, Denies fever(s), Denies night sweats and Denies weakness Cardiovascular: Cardiovascular: Denies chest pain, Denies lightheadedness, Denies palpitations and Denies dyspnea Respiratory: Respiratory: Denies cough, Denies dyspnea and Denies wheezing Gastrointestinal: Gastrointestinal: Denies abdominal pain, Denies diarrhea, Denies nausea and Denies vomiting Musculoskeletal: Musculoskeletal: Reports arthralgias (left hip ), Reports joint swelling (left hip ) and Denies numbness Neurologic: Denies numbness and Denies weakness Endocrine: Endocrine: Denies fatigue and Denies palpitations Allergic/Immunologic: Allergic/Immunologic: Denies wheezing Exam Const: General: comfortable and no acute distress Resp: Effort & Inspection: normal respiratory effort Cardio: Rate: regular rate Rhythm: regular rhythm GI: Inspection: non-distended Skin: General skin exam: normal color Wounds: wounds noted (incision left hip C/D/I ) Neuro: Cognition (Neuro): normal cognition Extrem: Right lower extremity: normal to inspection, full ROM and normal capillary refill Left lower extremity: hip/thigh Details: tenderness Location: of the hip Location: laterally and anteriorly, swelling (thigh soft ) Location: of the hip (lateral. ), abnormal ROM (limitations with internal/external rotation and flexion/extension due to recent surgical intervention ) and other (incision lateral hip c/d/i. ), knee Details: normal to inspection and normal ROM; no tenderness and no swelling, lower leg (Negative Byron's Sign ) Details: no edema, ankle (+ankle dorsiflexion/plantarflexion ) Details: normal to inspection, no edema and normal ROM; no tenderness, no swelling and no warmth and foot Details: normal capillary refill, toes with normal ROM, vascular exam Details: dorsalis pedis pulse present and motor-sensory exam light-touch normal in all toes; no tenderness, no ecchymosis and no crepitus Psych: Mental Status: mental status grossly normal Affect: normal affect Objective Data Vital Signs Vital Signs: Vital Signs - 24 hr 11/23/20 09:24 11/23/20 13:34 11/23/20 13:45 Temperature 36.8 C 36.6 C Pulse Rate 63 83 74 Respiratory Rate 20 14 21 H Blood Pressure 159/71 H 170/87 H 168/71 H Pulse Oximetry 99 100 100 11/23/20 14:00 11/23/20 14:15 11/23/20 14:30 Temperature Pulse Rate 72 72 72 Respiratory Rate 18 13 13 Blood Pressure 166/71 H 169/73 H 165/77 H Pulse Oximetry 100 95 96 11/23/20 14:53 11/23/20 15:08 11/23/20 15:38 Temperature 35.8 C L 36.1 C L 36.0 C L Pulse Rate 71 75 74 Respiratory Rate 16 16 16 Blood Pressure 148/74 H 170/68 H 142/74 H Pulse Oximetry 96 96 96 11/23/20 16:00 11/23/20 22:00 11/24/20 00:38 Temperature 36.1 C L 36.4 C 36.6 C Pulse Rate 64 78 78 Respiratory Rate 18 18 20 Blood Pressure 140/64 172/68 H 142/59 H Pulse Oximetry 96 97 98 11/24/20 04:38 [place]
[2020-11-24] MEDS: FAMOTIDINE 20 MG TABLET PO (09:37)
[2020-11-24] MEDS: ASPIRIN 325 MG ENTERIC TABLET 650 MG PO (09:37)
[2020-11-24] MEDS: CELECOXIB 200 MG CAPSULE PO (09:37)
[2020-11-24] MEDS: DOCUSATE SODIUM 100 MG CAPSULE PO ×2 (09:37→16:46)
[2020-11-24 10:00] VITALS: BP 139/74; PULSE 74; RESP 18; TEMP 36.3; O2SAT 98
[2020-11-24] MEDS: lisinopriL 20 MG TABLET 40 MG PO (12:08)
--- NOTE | 2020-11-24 13:36 | WPDANESPN ---
Anes - Prog Note Post-Op Date/Time: 11/24/20 13:36 Cardiovascular status: normal Respiratory status: normal Airway patency: baseline Mental status: baseline Post-Op hydration status: normal Vital Signs: Last Vital Signs Temp 36.3 C L 11/24/20 10:00 Pulse 74 11/24/20 10:00 Resp 18 11/24/20 10:00 BP 139/74 11/24/20 10:00 Pulse Ox 98 11/24/20 10:00 Pain Score (VAS): 0 I/O: Intake & Output 11/23/20 11/24/20 11/24/20 23:59 07:59 15:59 Intake Total 310 750 360 Output Total 900 550 Balance 310 -150 -190 Laboratory Tests 11/24/20 05:17 11/24/20 05:17 11/23/20 11/24/20 11/24/20 13:53 05:17 05:17 WBC 10.5 H RBC 4.27 L Hgb 14.0 12.6 L Hct 43.1 38.1 L MCV 89.2 MCH 29.5 MCHC 33.1 RDW 14.6 H Plt Count 182 MPV 9.4 Immature Gran % (Auto) 0.7 H Neut % (Auto) 80.2 H Lymph % (Auto) 10.1 L Wright % (Auto) 8.8 H Eos % (Auto) 0.1 Baso % (Auto) 0.1 L Lymph # (Auto) 1.06 Wright # (Auto) 0.9 H Eos # (Auto) 0.0 Baso # (Auto) 0.0 Abs Immat Gran (auto) 0.07 H Absolute Neuts (auto) 8.4 H Absolute Nucleated RBC 0.0 Nucleated RBC % 0.0 Sodium 136 L Potassium 4.6 Chloride 103 Carbon Dioxide 26 Anion Gap 7 L BUN 21 H Creatinine 0.90 Estim Creat Clear Calc 92 Estimated GFR > 60 Glucose 138 H Calcium 8.9 Magnesium 1.7 Total Bilirubin 0.3 Direct Bilirubin 0.0 AST 33 ALT 18 Alkaline Phosphatase 77 Total Protein 6.0 L Albumin 3.6 Post-procedural complaints: none Patient Feedback: Patient satisfied with anesthetic care.
--- NOTE | 2020-11-24 13:42 | PM.IMPN ---
Progress Note: A&P Assessment and Plan (1) Degenerative joint disease of left hip: Qualifiers: Osteoarthritis type: primary Qualified Code(s): M16.12 - Unilateral primary osteoarthritis, left hip Code(s): M16.12 - Unilateral primary osteoarthritis, left hip Status: Acute Assessment and Plan: Post op day 2 Managed by surgery PT/OT Pain control:Morphine 3mg IV Q3hr, [place] 7.5/325mg 1 tab PO q3hr, Nausea/Vomiting: Zofran 4mng IV PRN Bowel regimen: MOM, Mylanta, Colace GERD:Famotidine 20mg q12hr PO (2) Hypertension: Code(s): I10 - Essential (primary) hypertension Status: Inactive Assessment and Plan: Current Blood pressure 139/74 Lisinopril 40mg PO daily Trend Blood pressure Adjust medication as needed (3) Benign prostatic hyperplasia: Code(s): N40.0 - Benign prostatic hyperplasia without lower urinary tract symptoms Status: Acute Assessment and Plan: Chronic problem Continued home Terazosin 10mg PO Monitor I&O Bladder scan for thoughts of retention. (4) Obstructive sleep apnea on CPAP: Code(s): G47.33 - Obstructive sleep apnea (adult) (pediatric); Z99.89 - Dependence on other enabling machines and devices Status: Acute Assessment and Plan: Spot check SPO2 (5) Mixed hyperlipidemia: Code(s): E78.2 - Mixed hyperlipidemia Status: Acute (6) Prediabetes: Code(s): R73.03 - Prediabetes Status: Chronic Assessment and Plan: Diet controlled Subjective Date/time seen: 11/24/20 13:42 patient is a 65-year-old male with a past medical history of bilateral knee replacement bilateral hip replacement hypertension and borderline diabetes who was scheduled for a left hip replacement with Dr. Fontana on 11/23/2020. Patient is currently resting in bed with no complaints. Patient seems to be a little confused however attributing confusion to his medicines. Patient was seen by PT and OT today patient was walked in was able to do some stairs. Patient stated that he was ready to go home and he is just waiting for the surgeon to come in to see him. Patient denies chest pain shortness of breath, nausea, vomiting, abdominal pain, numbness and tingling in any extremity, fatigue, weakness, acute pain, syncope, headaches, fatigue, or falls. Review of Systems Review of Systems: All systems reviewed & are unremarkable except as noted in HPI and below Exam Const: General: comfortable and no acute distress HENMT: Ears: TM's normal bilaterally Eyes: General: appearance normal, both eyes and all related structures Pupils: Equal, round and reactive pupils present EOM: EOMs intact bilaterally Neck: Neck: supple and no JVD Lymphatic: lymphadenopathy Resp: Effort & Inspection: normal respiratory effort Auscultation: clear to auscultation bilaterally Cardio: Rate: regular rate Rhythm: regular rhythm GI: Inspection: non-distended GI Palp: Yes Soft to palpation and No Tenderness to palpation present (GI) Auscultation: normal bowel sounds Skin: General skin exam: normal color and no rashes or lesions noted Wounds: wounds noted (surgical wound) Neuro: General: gait normal Cognition (Neuro): normal cognition Speech: normal speech Motor exam (neuro): 5/5 motor strength present throughout and Normal motor muscle tone present throughout Sensory Exam: normal sensation Extrem: General: normal to inspection and normal exam except as noted Right upper extremity: normal to inspection, full ROM and normal capillary refill Left upper extremity: normal to inspection, full ROM and normal capillary refill Right lower extremity: normal to inspection, full ROM and normal capillary refill Left lower extremity: normal to inspection, full ROM and normal capillary refill Psych: Mental Status: mental status grossly normal Affect: normal affect and Anxious affect present Thought
[2020-11-24 14:00] VITALS: BP 136/78; PULSE 78; RESP 16; TEMP 36.6; O2SAT 98
== END 2020-11-24 17:05 | disposition home health service (06) ==
LOC: ANHSURGERY 09:09 → ANH2MED 14:59
PROVIDERS: Physician Assistant; PCP Family Medicine; Visit Provider Orthopaedic Surgery
PROC: (CPT 27130; principal; 2020-11-23 11:00)
DX: M16.12 Unilateral primary osteoarthritis, left hip (principal); I11.9 Hypertensive heart disease without heart failure; G47.33 Obstructive sleep apnea (adult) (pediatric); R73.03 Prediabetes; M81.0 Age-related osteoporosis without current pathological fracture; E78.2 Mixed hyperlipidemia; Z79.891 Long term (current) use of opiate analgesic; E66.01 Morbid (severe) obesity due to excess calories; Z68.39 Body mass index [BMI] 39.0-39.9, adult
CPT/HCPCS: 27130; 36415; 73501; 80048; 80076; 80307; 81001; 82040; 83036; 83735; 85014; 85018; 85025; 85610; 85730; 86850; 86900; 86901; 87081; 93005; 97110; 97116; 97161; 97165; A9270; C1713; C1776; C9803; J0171; J0690; J1100; J1170; J2250; J2270; J2370; J2405; J2704; J2795; J3010; J7120; U0003; U0005